=== PATIENT | male | born 1985 | race African-American/Black ===

== ENCOUNTER 2016-11-26 23:44 | Emergency (ER) | payer SELFPAY ==
[~2016-11-26] VITALS: Ht 175.3 cm; Wt 88.6 kg
[~2016-11-26 23:44] MED LIST: ATIVAN 0.50.5 MG/TAB PO; FLEXERIL10 MG PO; FLOXIN OTIC DROP5 ML OT; NAPROSYN PO; NO HOME MEDICATIONS; NORCO 325 MG-51 TAB PO
[2016-11-26 23:50] VITALS: TEMP 97.6
[2016-11-27 00:31] LABS: BASO # 0.1 (0.0-0.2); BASO % 0.7 % (0.0-2.0); EOS # 0.2 (0.0-0.7); EOS % 1.5 % (0-4.0); GRAN # 4.5 (1.4-6.5); HEMOGLOBIN 12.5 g/dl (13.5-18.0); LYMPH # 4.2 (1.2-3.4); LYMPH % 42.1 % (20.0-51.0); MEAN CELL VOLUME 79 fl (80.0-100.0); MEAN CORPUSCULAR HEMOGLOBIN 27 pg (27.0-31.0); MEAN CORPUSCULAR HGB CONC 34 g/dl (33.0-37.0); MEAN PLATELET VOLUME 9.8 fl (7.4-10.4); MONO # 1.1 (0.1-0.6); MONO % 10.5 % (1.7-9.3); PLATELET COUNT 296 K/mm3 (130-400); RED BLOOD COUNT 4.66 M/mm3 (4.20-5.60); REDCELL DISTRIBUTION WIDTH-CV 12.1 % (11.5-14.5)
[2016-11-27 00:32] LABS: HEMATOCRIT 36.6 % (42.0-52.0)
[2016-11-27 00:42] LABS: ADJUSTED CALCIUM 9.6 mg/dL (8.4-10.2); ALANINE AMINOTRANSFERASE 29 U/L (21-72); ALKALINE PHOSPHATASE 54 U/L (50-136); ANION GAP 13 mmol/L (7-16); BILIRUBIN,TOTAL 1.8 mg/dL (0.0-1.0); BLOOD UREA NITROGEN 12 mg/dL (9-20); CALCIUM 9.6 mg/dL (8.4-10.2); CARBON DIOXIDE 26 mmol/L (22-30); CHLORIDE 100 mmol/L (98-107); CREATININE, serum 1.29 mg/dL (0.66-1.25); GLUCOSE 88 mg/dL (74-106); POTASSIUM 3.8 mmol/L (3.4-5.0); SODIUM 139 mmol/L (137-145)
[2016-11-27 00:53] LABS: TROPONIN-I < 0.012 ng/mL (0.000-0.034)
[2016-11-27 03:05] VITALS: BP 120/74; PULSE 69
== END 2016-11-27 03:05 | disposition home or self-care (01) ==
LOC: COL.ER 23:44
PROVIDERS: Nurse Practitioner
DX: R07.9 Chest pain, unspecified (principal)
CPT/HCPCS: J1885; J2060; J7030

== ENCOUNTER → 2017-07-28 | Outpatient (CLI) | payer SELFPAY ==
[2017-07-28 17:34] LABS: CREATININE, serum 0.92 mg/dL (0.66-1.25)
== END ==
LOC: COL.LAB 16:24
PROVIDERS: Internal Medicine Interventional Cardiology
DX: Z01.812 Encounter for preprocedural laboratory examination (principal); R07.89 Other chest pain

== ENCOUNTER → 2018-08-17 | Outpatient (CLI) | payer BC | LOC: COL.RAD 08:00 | DX: R51 Headache (principal) ==

== ENCOUNTER → 2018-09-28 | Outpatient (CLI) | payer BC | LOC: MHCPAIN 14:30 | DX: G89.29 Other chronic pain (principal); M47.817 Spondylosis without myelopathy or radiculopathy, lumbosacral region; M54.16 Radiculopathy, lumbar region; M53.3 Sacrococcygeal disorders, not elsewhere classified | CPT/HCPCS: G0463 ==

== ENCOUNTER 2019-01-09 19:30 | Emergency (ER) | payer BC ==
[~2019-01-09] VITALS: Ht 175.3 cm; Wt 81.8 kg
[2019-01-09 19:33] VITALS: TEMP 97.8
[2019-01-09 20:10] LABS: BASO # 0.1 (0.0-0.2); BASO % 0.7 % (0.0-2.0); EOS # 0.1 (0.0-0.7); EOS % 0.8 % (0-4.0); GRAN # 4.7 (1.4-6.5); GRAN % 45.5 % (42.2-75.2); HEMATOCRIT 39.7 % (42.0-52.0); HEMOGLOBIN 13.5 g/dl (13.5-18.0); LYMPH # 4.4 (1.2-3.4); LYMPH % 43.1 % (20.0-51.0); MEAN CELL VOLUME 79 fl (80.0-100.0); MEAN CORPUSCULAR HEMOGLOBIN 27 pg (27.0-31.0); MEAN CORPUSCULAR HGB CONC 34 g/dl (33.0-37.0); MEAN PLATELET VOLUME 10.4 fl (7.4-10.4); MONO % 9.7 % (1.7-9.3); PLATELET COUNT 325 K/mm3 (130-400); RED BLOOD COUNT 5.06 M/mm3 (4.20-5.60); REDCELL DISTRIBUTION WIDTH-CV 11.5 % (11.5-14.5)
[2019-01-09 20:31] LABS: ALANINE AMINOTRANSFERASE 7 U/L (21-72); ALBUMIN 4.4 gm/dL (3.5-5.0); ALKALINE PHOSPHATASE 56 U/L (50-136); ANION GAP 10 mmol/L (7-16); AST,SGOT 39 U/L (15-37); BILIRUBIN,TOTAL 1.2 mg/dL (0.0-1.0); BLOOD UREA NITROGEN 15 mg/dL (9-20); CALCIUM 9.9 mg/dL (8.4-10.2); CARBON DIOXIDE 28 mmol/L (22-30); CHLORIDE 103 mmol/L (98-107); CREATINE KINASE 91 U/L (55-170); CREATININE, serum 1.02 (0.66-1.25); GLUCOSE 84 mg/dL (74-106); POTASSIUM 3.9 mmol/L (3.4-5.0); SODIUM 141 mmol/L (137-145); TOTAL PROTEIN 7.8 gm/dL (6.4-8.2)
[2019-01-09 20:34] LABS: ERYTHROCYTE SEDIMENTATION RATE 1 mm/hr (0-15)
[2019-01-09 20:37] LABS: C-REACTIVE PROTEIN < 0.5 mg/dL (0.0-0.9)
[2019-01-09 20:40] LABS: TROPONIN-I < 0.012 ng/mL (0.000-0.035)
[2019-01-09] MEDS ORDERED: MEDROL 4MG DOSPA4 MG PO (22:07)
[2019-01-09 22:31] VITALS: BP 131/81; PULSE 77
== END 2019-01-09 22:33 | disposition home or self-care (01) ==
LOC: COL.ER 19:30
PROVIDERS: Emergency Medicine
DX: R07.89 Other chest pain (principal); G43.909 Migraine, unspecified, not intractable, without status migrainosus
CPT/HCPCS: J1885; J2060; J7030; J7512

== ENCOUNTER 2019-03-14 20:14 | Emergency (ER) | payer BC ==
[~2019-03-14] VITALS: Ht 175.3 cm; Wt 84.1 kg
[~2019-03-14 20:14] MED LIST changes: +MEDROL 4MG DOSPA4 MG PO
[2019-03-14 20:18] VITALS: BP 132/85; PULSE 83; TEMP 98
[2019-03-14] MEDS ORDERED: INDERAL 20MG20 MG PO (23:39)
== END 2019-03-14 22:29 | disposition home or self-care (01) ==
LOC: COL.ER 20:14
DX: T22.012A Burn of unspecified degree of left forearm, initial encounter (principal); T23.072A Burn of unspecified degree of left wrist, initial encounter; T23.002A Burn of unspecified degree of left hand, unspecified site, initial encounter; G43.909 Migraine, unspecified, not intractable, without status migrainosus; Z23 Encounter for immunization; X10.2XXA Contact with fats and cooking oils, initial encounter; Y93.G3 Activity, cooking and baking; Y92.009 Unspecified place in unspecified non-institutional (private) residence as the place of occurrence of the external cause

== ENCOUNTER 2020-03-03 16:21 | Emergency (ER) | payer SELFPAY ==
[~2020-03-03] VITALS: Ht 175.3 cm; Wt 86.4 kg
[~2020-03-03 16:21] MED LIST changes: +INDERAL 20MG20 MG PO
[2020-03-03 16:31] VITALS: BP 124/82; TEMP 97.9
[2020-03-03 17:09] LABS: BASO # 0.1 (0.0-0.2); BASO % 0.9 % (0.0-2.0); EOS # 0.1 (0.0-0.7); EOS % 1.1 % (0-4.0); GRAN # 3.3 (1.4-6.5); GRAN % 46.7 % (42.2-75.2); HEMATOCRIT 39.2 % (42.0-52.0); HEMOGLOBIN 13.4 g/dl (13.5-18.0); LYMPH # 2.7 (1.2-3.4); LYMPH % 38.3 % (20.0-51.0); MEAN CELL VOLUME 80 fl (80.0-100.0); MEAN CORPUSCULAR HEMOGLOBIN 27 pg (27.0-31.0); MEAN CORPUSCULAR HGB CONC 34 g/dl (33.0-37.0); MEAN PLATELET VOLUME 10.2 fl (7.4-10.4); MONO # 0.9 (0.1-0.6); MONO % 12.4 % (1.7-9.3); PLATELET COUNT 308 K/mm3 (130-400)
[2020-03-03 17:17] LABS: CALCIUM 9.6 mg/dL (8.4-10.2); CREATININE, serum 1.13 (0.66-1.25); POTASSIUM 4.9 mmol/L (3.4-5.0)
[2020-03-03] MEDS ORDERED: FLEXERIL 1010 MG/TAB PO (17:46)
[2020-03-03] MEDS ORDERED: PREDNISONE20 MG PO (17:46)
[2020-03-03] MEDS ORDERED: NORCO 325 MG-51 TAB PO (17:46)
[2020-03-03 18:15] VITALS: PULSE 72
== END 2020-03-03 18:15 | disposition home or self-care (01) ==
LOC: COL.ER 16:21
PROVIDERS: Emergency Medicine
DX: M54.16 Radiculopathy, lumbar region (principal); Z79.52 Long term (current) use of systemic steroids
CPT/HCPCS: J7512

== ENCOUNTER 2020-03-10 12:00 | Emergency (ER) | payer SELFPAY ==
[~2020-03-10] VITALS: Ht 175.3 cm; Wt 86.4 kg
[~2020-03-10 12:00] MED LIST changes: +FLEXERIL 1010 MG/TAB PO; +PREDNISONE20 MG PO
[2020-03-10 12:16] VITALS: TEMP 98.9
[2020-03-10 12:30] LABS: COLLECTION METHOD CLEAN CATCH
[2020-03-10 12:35] LABS: MUCOUS Present /lpf; PH 5 (5-8); SQUAMOUS EPITHELIAL None Seen /hpf; URINE APPEARANCE Clear; URINE BACTERIA None Seen /hpf; URINE BILIRUBIN Negative (NEGATIVE); URINE BLOOD Negative (NEGATIVE); URINE COLOR Yellow; URINE GLUCOSE Negative (NEGATIVE); URINE KETONE Negative (NEGATIVE); URINE LEUKOCYTE ESTERASE Negative (NEGATIVE); URINE NITRATE Negative (NEGATIVE); URINE PROTEIN(semi-quant) Negative (NEGATIVE); URINE RBC 0-2 /hpf; URINE UROBILINOGEN Negative (NEGATIVE)
[2020-03-10] MEDS ORDERED: MULTI VITAMINS1 TAB PO (13:36)
[2020-03-10 13:58] LABS: HEMATOCRIT 39.7 % (42.0-52.0); HEMOGLOBIN 13.3 g/dl (13.5-18.0); MEAN CELL VOLUME 81 fl (80.0-100.0); MEAN CORPUSCULAR HEMOGLOBIN 27 pg (27.0-31.0); MEAN CORPUSCULAR HGB CONC 34 g/dl (33.0-37.0); MEAN PLATELET VOLUME 10.1 fl (7.4-10.4); PLATELET COUNT 293 K/mm3 (130-400); RED BLOOD COUNT 4.91 M/mm3 (4.20-5.60); REDCELL DISTRIBUTION WIDTH-CV 12.5 % (11.5-14.5)
[2020-03-10 14:11] LABS: ALANINE AMINOTRANSFERASE 57 U/L (4-49); ALKALINE PHOSPHATASE 57 U/L (50-136); ANION GAP 6 mmol/L (7-16); AST,SGOT 26 U/L (15-37); BILIRUBIN,TOTAL 1.3 mg/dL (0.0-1.0); BLOOD UREA NITROGEN 15 mg/dL (9-20); CALCIUM 9.2 mg/dL (8.4-10.2); CARBON DIOXIDE 30 mmol/L (22-30); CHLORIDE 100 mmol/L (98-107); CREATININE, serum 1.12 (0.66-1.25); GLUCOSE 90 mg/dL (74-106); LIPASE 59 U/L (23-300); POTASSIUM 3.6 mmol/L (3.4-5.0); SODIUM 136 mmol/L (137-145); TOTAL PROTEIN 7.3 gm/dL (6.4-8.2)
[2020-03-10 14:12] LABS: C-REACTIVE PROTEIN < 0.5 mg/dL (0.0-0.9)
[2020-03-10 14:33] LABS: BAND 2 % (0-10); EOSINOPHIL 1 % (0-4); LYMPHOCYTE 40 % (20.0-51.0); NEUTROPHILS 49 % (42.0-75.2); PLATELET ESTIMATE NORMAL (NORMAL)
[2020-03-10] MEDS ORDERED: PROTONIX 40MG T40 MG PO (15:11)
[2020-03-10] MEDS ORDERED: CARAFATE 1GM1 G PO (15:11)
[2020-03-10] MEDS ORDERED: ANTIVERT 25MG25 MG PO (15:11)
[2020-03-10 16:48] VITALS: BP 130/89; PULSE 104
[2020-03-13] MEDS ORDERED: PHENERGAN 25 TA25 MG PO (11:17)
== END 2020-03-10 16:48 | disposition home or self-care (01) ==
LOC: COL.ER 12:00
PROVIDERS: Emergency Medicine
DX: R10.11 Right upper quadrant pain (principal); Z86.69 Personal history of other diseases of the nervous system and sense organs
CPT/HCPCS: J7030; Q9967

== ENCOUNTER → 2020-03-13 | Emergency (ER) | payer SELFPAY ==
[~2020-03-13] VITALS: Ht 175.3 cm; Wt 86.4 kg
[~2020-03-13] MED LIST changes: +ANTIVERT 25MG25 MG PO; +CARAFATE 1GM1 G PO; +MULTI VITAMINS1 TAB PO; +PHENERGAN 25 TA25 MG PO; +PROTONIX 40MG T40 MG PO
[2020-03-13 07:35] VITALS: TEMP 98.1
[2020-03-13 08:52] LABS: HEMOGLOBIN 14.1 g/dl (13.5-18.0); MEAN CELL VOLUME 80 fl (80.0-100.0); MEAN CORPUSCULAR HEMOGLOBIN 28 pg (27.0-31.0); MEAN CORPUSCULAR HGB CONC 34 g/dl (33.0-37.0); PLATELET COUNT 316 K/mm3 (130-400); RED BLOOD COUNT 5.12 M/mm3 (4.20-5.60); REDCELL DISTRIBUTION WIDTH-CV 12.4 % (11.5-14.5)
[2020-03-13 08:54] VITALS: BP 148/96
[2020-03-13 09:09] LABS: ALANINE AMINOTRANSFERASE 59 U/L (4-49); ALBUMIN 4.5 gm/dL (3.5-5.0); ALKALINE PHOSPHATASE 83 U/L (50-136); ANION GAP 8 mmol/L (7-16); AST,SGOT 42 U/L (15-37); BILIRUBIN,TOTAL 1.3 mg/dL (0.0-1.0); BLOOD UREA NITROGEN 11 mg/dL (9-20); C-REACTIVE PROTEIN < 0.5 mg/dL (0.0-0.9); CALCIUM 9.9 mg/dL (8.4-10.2); CARBON DIOXIDE 28 mmol/L (22-30); CHLORIDE 99 mmol/L (98-107); CREATININE, serum 1.24 (0.66-1.25); GLUCOSE 107 mg/dL (74-106); LIPASE 107 U/L (23-300); MAGNESIUM 2.2 mg/dL (1.6-2.3); POTASSIUM 4.2 mmol/L (3.4-5.0); SODIUM 135 mmol/L (137-145); TOTAL PROTEIN 8.2 gm/dL (6.4-8.2)
[2020-03-13 09:20] LABS: BAND 3 % (0-10); EOSINOPHIL 6 % (0-4); LYMPHOCYTE 50 % (20.0-51.0); METAMYELOCYTE 2 % (0-0); MICROCYTOSIS 1+; NEUTROPHILS 25 % (42.0-75.2); NUCLEATED RED BLOOD CELL 1 (0-6); PLATELET ESTIMATE NORMAL (NORMAL)
[2020-03-13 09:21] LABS: ERYTHROCYTE SEDIMENTATION RATE 1 mm/hr (0-15)
[2020-03-13 10:57] LABS: TROPONIN-I < 0.012 ng/mL (0.000-0.035)
[2020-03-13 11:38] VITALS: PULSE 105
== END ==
LOC: COL.ER 07:30
PROVIDERS: Emergency Medicine
DX: R51 Headache (principal); Z86.69 Personal history of other diseases of the nervous system and sense organs
CPT/HCPCS: J2060; J7030; Q9967

== ENCOUNTER → 2020-03-27 | Outpatient (CLI) | payer SELFPAY | LOC: COL.RAD 07:30 | DX: G43.719 Chronic migraine without aura, intractable, without status migrainosus (principal) ==

== ENCOUNTER → 2020-06-25 | Outpatient (CLI) | payer OTHER | LOC: ZCOL.LAB 16:51 | DX: J02.9 Acute pharyngitis, unspecified (principal); Z20.828 Contact with and (suspected) exposure to other viral communicable diseases ==

== ENCOUNTER 2021-09-02 11:48 | Emergency (ER) | payer SELFPAY ==
[~2021-09-02] VITALS: Ht 175.3 cm; Wt 79.5 kg
[2021-09-02 12:03] VITALS: BP 144/98; PULSE 91; TEMP 98.4
[2021-09-02] MEDS ORDERED: NORCO 325 MG-51 TAB PO (17:08)
== END 2021-09-02 12:56 | disposition home or self-care (01) ==
LOC: COL.ER 11:48
DX: S86.002A Unspecified injury of left Achilles tendon, initial encounter (principal); X50.9XXA Other and unspecified overexertion or strenuous movements or postures, initial encounter
CPT/HCPCS: 31868; L4386

== ENCOUNTER 2021-09-02 15:49 | Emergency (ER) | payer SELFPAY ==
[~2021-09-02] VITALS: Ht 175.3 cm; Wt 79.5 kg
[2021-09-02 15:59] VITALS: TEMP 98.4
[2021-09-02] MEDS ORDERED: NORCO 325 MG-51 TAB PO (17:08)
[2021-09-02 17:26] VITALS: BP 138/76; PULSE 81
== END 2021-09-02 17:27 | disposition home or self-care (01) ==
LOC: COL.ER 15:49
DX: S86.002A Unspecified injury of left Achilles tendon, initial encounter (principal); X50.9XXA Other and unspecified overexertion or strenuous movements or postures, initial encounter

== ENCOUNTER 2021-11-07 10:41 | Emergency (ER) | payer BC ==
[~2021-11-07] VITALS: Ht 175.3 cm; Wt 81.8 kg
[2021-11-07 10:46] VITALS: TEMP 98.6
[2021-11-07 13:55] VITALS: BP 122/76; PULSE 88
== END 2021-11-07 13:55 | disposition home or self-care (01) ==
LOC: COL.ER 10:41
DX: M79.661 Pain in right lower leg (principal)

== ENCOUNTER 2021-11-17 08:21 | Emergency (ER) | payer OTHER, BC ==
[~2021-11-17] VITALS: Ht 175.3 cm; Wt 81.8 kg
[2021-11-17 08:30] VITALS: BP 120/76; TEMP 97.7
[2021-11-17] MEDS ORDERED: ROBAXIN 50500 MG/TAB PO (10:32)
[2021-11-17] MEDS ORDERED: NAPROSYN500 MG PO (10:32)
[2021-11-17 10:48] VITALS: PULSE 80
== END 2021-11-17 10:48 | disposition home or self-care (01) ==
LOC: COL.ER 08:21
DX: F07.81 Postconcussional syndrome (principal); M54.2 Cervicalgia; V49.9XXA Car occupant (driver) (passenger) injured in unspecified traffic accident, initial encounter; Y92.410 Unspecified street and highway as the place of occurrence of the external cause

== ENCOUNTER 2022-11-02 15:09 | Emergency (ER) | payer OTHER, BC ==
[~2022-11-02] VITALS: Ht 175.3 cm; Wt 90.9 kg
[~2022-11-02 15:09] MED LIST changes: +NAPROSYN500 MG PO; +ROBAXIN 50500 MG/TAB PO
[2022-11-02 15:36] VITALS: TEMP 98.3
[2022-11-02] MEDS ORDERED: FLEXERIL 1010 MG/TAB PO (18:44)
[2022-11-02 18:53] VITALS: BP 141/71; PULSE 83
== END 2022-11-02 18:53 | disposition home or self-care (01) ==
LOC: COL.ER 15:09
DX: S13.4XXA Sprain of ligaments of cervical spine, initial encounter (principal); M54.6 Pain in thoracic spine; V89.2XXA Person injured in unspecified motor-vehicle accident, traffic, initial encounter; Y92.410 Unspecified street and highway as the place of occurrence of the external cause
CPT/HCPCS: J1885

== ENCOUNTER → 2023-02-08 | Outpatient (CLI) | payer SELFPAY | LOC: WSPT 09:05 | DX: M54.2 Cervicalgia (principal) ==